=== PATIENT | female | born 1965 | race Caucasian/White ===

== ENCOUNTER 2018-06-25 07:11 | Emergency (ER) | payer MEDICAID ==
[~2018-06-25] VITALS: Ht 172.7 cm; Wt 75.0 kg
[~2018-06-25 07:11] MED LIST: AZI25OT PO; MARIJUANA; PANT-47 PO; PRED20TA PO; UNKNOWN ANXIETY MED; ZOF4T PO
--- NOTE | 2018-06-25 07:15 | NUR ---
NOT IN [facility]
[2018-06-25 07:21] VITALS: BP 107/70
== END 2018-06-25 07:52 | disposition home or self-care (01) ==
LOC: ER 07:11
DX: J06.9 Acute upper respiratory infection, unspecified (principal); F41.9 Anxiety disorder, unspecified; F17.200 Nicotine dependence, unspecified, uncomplicated; F12.10 Cannabis abuse, uncomplicated; Z56.0 Unemployment, unspecified; Z88.8 Allergy status to other drugs, medicaments and biological substances; Z79.899 Other long term (current) drug therapy
CPT/HCPCS: 99281

== ENCOUNTER 2018-09-01 11:49 | Emergency (ER) | payer MEDICAID ==
[~2018-09-01] VITALS: Ht 170.2 cm; Wt 68.2 kg
[2018-09-01] MEDS ORDERED: LORazepam 2 mg/ml vial IM ONE (13:25)
[2018-09-01] MEDS ORDERED: normal saline 1000ML IV soln IVB ONE (13:25)
[2018-09-01] MEDS ORDERED: meclizine 12.5mg tablet PO ONE (13:25)
[2018-09-01 13:31] VITALS: BP 129/75
[2018-09-01] MEDS ORDERED: MECL-111 PO (14:26)
[2018-09-02] MEDS ORDERED: MECL12.584 PO (15:54)
== END 2018-09-01 14:51 | disposition left against medical advice (07) ==
LOC: ER 11:50
DX: H81.399 Other peripheral vertigo, unspecified ear (principal); F12.90 Cannabis use, unspecified, uncomplicated; Z98.890 Other specified postprocedural states; Z56.0 Unemployment, unspecified; Z88.8 Allergy status to other drugs, medicaments and biological substances; Z79.899 Other long term (current) drug therapy
CPT/HCPCS: 93005; 96360; 96372; 99284; J2060; J7030; J8597

== ENCOUNTER 2020-09-07 18:16 | Emergency (ER) | payer MEDICAID ==
[~2020-09-07] VITALS: Ht 167.6 cm; Wt 55.7 kg
[~2020-09-07 18:16] MED LIST changes: +MECL-159 PO; +MECL-231 PO
[2020-09-07 18:22] VITALS: BP 116/69
[2020-09-07] MEDS ORDERED: ALBU6.7H9 INH (18:24)
== END 2020-09-07 18:30 | disposition home or self-care (01) ==
LOC: ER 18:16
DX: R06.02 Shortness of breath (principal); F12.10 Cannabis abuse, uncomplicated; F41.9 Anxiety disorder, unspecified; Z88.6 Allergy status to analgesic agent; Z79.899 Other long term (current) drug therapy
CPT/HCPCS: 99283